=== PATIENT | male | born 1990 | race Caucasian/White ===

== ENCOUNTER 2019-03-09 20:01 | Emergency (ER) | payer MEDICAID, SELFPAY ==
[2019-03-09 20:06] VITALS: BP 128/75; PULSE 75; RESP 14; TEMP 36.6; O2SAT 99
--- NOTE | 2019-03-09 20:24 | NUR.NOTE ---
Pt changed to paper clothing. 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 Placed in room 9, room secured. GUSTAVO Moran in to figueroa pt.
--- NOTE | 2019-03-09 20:33 | NUR.NOTE ---
To room 9 with c/o SI. Pt reports that he has been snorting heroin daily since July, after being clean for several years. states he has been feeling suicidal since he started using again. States he wants to overdose on heroin. Had attempted to OD in December, was not seen in hospital then. Reports that the sate has taken away his children and he does not see his anymore, feeling very depressed. States he had inpt psych admission >10 years ago. Pt tearful during interview.
[2019-03-09 21:02] LABS: Abs Immature Grans 0.02 k/cumm (0.0-0.09); Absolute Basophil Count 0.02 k/cumm (0.0-0.2); Absolute Monocyte Count 0.41 k/cumm (0.11-0.7); Absolute Neutrophil Count 5.27 k/cumm (1.2-6.7); Basophils % 0.2; Eosinophils % 1.1; HCT 45.8 % (40.0-50.0); HGB 15.6 g/dL (13.5-17.5); Immature Grans % 0.2; Lymphocytes % 33.3; Mean Corp. HGB Concentration 34.1 g/dL (32.0-36.0); Mean Corpuscular Volume 91.1 fL (80-95); Mean Platelet Volume 9.3 fL (8.0-11.0); Monocytes % 4.7; Neutrophils % 60.5; Platelet Count 279 x1000/uL (130-400); RBC 5.03 m/cumm (4.50-6.00); RBC Distribution Width 12.6 % (11.8-14.1); White Blood Cell Count 8.72 k/cumm (4.4-10.8)
--- NOTE | 2019-03-09 21:03 | ED.GENADUL_ITS ---
Discharge Plan Disposition Patient Disposition: HOME Condition: Stable Discharge Details Chief Complaint: PsychEval Clinical Impression: Substance abuse Primary Care Provider: Marleny,Local ED Provider: Wagner Malagon Home Meds and New Rx's Prescriptions: No Action No Known Home Meds RF: 0 Discharge Instructions Instructions: Narcotic Abuse (ED) Additional Instructions: Return at any time for reevaluation or should you have recurrent mood disruption. Follow-up with your plans to establish outpatient care. Discharge Data Discharge Date/Time-TO BE ENTERED AT DEPARTURE: 03/10/19 10:10 Medical Decision Making <GUSTAVO Marion - Last Filed: 03/10/19 23:26> Patient referred to mental health for possible dual diagnosis placement. CPSO in place Spoke with ARMANDO who evaluated the patient the emergency room and will try to place an dual diagnosis bed. They do believe his bed is available tomorrow morning in [place]. <Maksim Dennis MD - Last Filed: 03/10/19 20:04> Patient here voluntarily for admission for depression/opioid dependence. No issues overnight. CPSO continues observation. Urine drug screen positive for opiates and marijuana. Other labs unremarkable. Hopefully to be placed later today. Lab Data Lab results reviewed: Yes I reviewed the patient's lab results. <Wagner Malagon MD - Last Filed: 03/10/19 09:42> Received signout from Dr. Dennis. Please see previous notes regarding details of patient's presentation and initial plan of care. He was observed overnight, rested comfortably, was evaluated again in the morning by mental health screener. Patient has good insight now into the stress that induced his relapse last night. No longer has thoughts of harming himself or others. He voices plans to obtain outpatient mental health and substance abuse treatment. He no longer wishes to pursue inpatient treatment. He was seen in the ER as well by a swim coach. Patient no longer a danger to himself or others. He is improving. He has good insight and a plan for outpatient care. He stable and appropriate discharged home. HPI <GUSTAVO Marion - Last Filed: 03/10/19 23:26> General Date/Time Provider Initiated Documentation: 03/09/19 20:13 . HPI Narrative: Patient presents for suicidal ideation. Patient has intent to kill himself via overdosing on heroin. Patient reports he had used heroin for approximately 8 years then had a long multi-years of sobriety. Patient recently relapsed in May. Patient reports significant stress regarding his child being recently taken away from him and the child's mother due to drug use. Patient is very tearful. Patient has no specific medical concerns or complaints at this time.. Denies IV drug use recently. Uses heroin intranasally Related Data Home Medications Medication Instructions Recorded Confirmed Unknown [No Known Home Meds] 12/03/13 12/03/13 Allergies Allergy/AdvReac Type Severity Reaction Status Date / Time No Known Allergies Allergy Unverified 12/03/13 20:37 General Stated Complaint: PsychEval TAMIE: 2 Review of Systems <GUSTAVO Marion - Last Filed: 03/10/19 23:26> Review of Systems ROS Unobtainable: All systems reviewed & are unremarkable except as noted in HPI and below Constitutional Constitutional: Denies chills, Denies fatigue and Denies fever(s) Psychiatric Psychiatric: Reports depression, Denies homicidal ideation and Reports suicidal ideation Endocrine Endocrine: Denies fatigue PFSH <GUSTAVO Marion - Last Filed: 03/10/19 23:26> Social History Smoking/Tobacco Use Status: Current every day Alcohol Intake: current Alcohol Intake frequency: a few times a month Drug use: Daily Substance use type: heroin Do you feel safe at home: Yes Do you feel safe in your relationship?: Yes Exam <GUSTAVO Marion - Last Filed: 03/10/19 23:26> Narrative Exam Narrative: CONST: Healthy appearing patient, in no acute distress. Well hydrated. Alert and alert. Chronic scarring noted to face and arms HENMT: Head nomocephalic, normal to inspection. Atraumatic. Hearing grossly normal. EYES: General normal appearance. Alignment normal. Eyelids normal. Conjunctiva normal. NECK: Normal visual inspection. FROM. Trachea midline. No Midline tenderness. CHEST: Normal insepection of the chest. RESP: Normal respiratory effort. Speaking full sentences. No cough. No audible wheezing. No retractions. CARDIO: No JVD. No murmurs or rubs MUSCULOSKELETAL: Normal Gait. FROM of all extremities. SKIN: Normal. Dry. No rashes. NEURO: Alert and awake. Speech clear. PSYCH: Normal affect. Cooperative. Course <GUSTAVO Marion - Last Filed: 03/10/19 23:26> Vital Signs Vital signs: Vital Signs Temperature 36.6 C 03/09/19 20:06 Pulse 75 03/09/19 20:06 Respiratory Rate 14 03/09/19 20:06 Blood Pressure 128/75 03/09/19 20:06 Pulse Oximetry 99 03/09/19 20:06 Temperature 36.6 C 03/09/19 20:06 Temperature Source Skin 03/09/19 20:06 Pulse 75 03/09/19 20:06 Respiratory Rate 14 03/09/19 20:06 Respiratory Effort 03/09/19 20:09 Blood Pressure 128/75 03/09/19 20:06 Blood Pressure Position Sitting 03/09/19 20:06 Pulse Oximetry 99 03/09/19 20:06 Pain Level 0 03/09/19 20:06 Lab/Test Results Lab/Test Results: Laboratory Tests Range/Units 03/09/19 20:53 WBC (4.4-10.8) k/cumm 8.72 RBC (4.50-6.00) m/cumm 5.03 Hgb (13.5-17.5) g/dL 15.6 Hct (40.0-50.0) % 45.8 MCV (80-95) fL 91.1 MCH (27.0-33.0) pg 31.0 MCHC (32.0-36.0) g/dL 34.1 RDW (11.8-14.1) % 12.6 Plt Count (130-400) x1000/uL 279 MPV (8.0-11.0) fL 9.3 Immature Gran % 0.2 Neutrophils % 60.5 Lymphocytes % 33.3 Monocytes % 4.7 Eosinophils % 1.1 Basophils % 0.2 Absolute Neutrophils (1.2-6.7) k/cumm 5.27 Absolute Lymphocytes (1.2-3.4) k/cumm 2.90 Absolute Monocytes (0.11-0.7) k/cumm 0.41 Absolute Eosinophils (0.0-0.7) k/cumm 0.10 Absolute Basophils (0.0-0.2) k/cumm 0.02 Sign Out <GUSTAVO Marion - Last Filed: 03/10/19 23:26> Sign Out Data: Sign Out Comment: Patient signed out pending psychiatric placement for dual diagnosis depression/opioid dependence. Last updated by Maksim Dennis MD at 03/10/19 07:40
[2019-03-09 21:16] LABS: ALT 17 U/L (16-63); AST 10 U/L (15-37); Albumin 4.1 g/dL (3.4-5.0); Alkaline Phosphatase 68 U/L (46-116); Anion Gap 8.9 mmol/L (3-11); BUN 16 mg/dL (7-18); Bilirubin, Total 0.4 mg/dL (0.2-1.0); CO2 29.1 mmol/L (21.0-32.0); CREATININE 0.91 mg/dL (0.70-1.30); Calcium 8.5 mg/dL (8.5-10.1); Chloride 105 mmol/L (98-107); Glucose 77 mg/dL (70-100); Potassium 3.9 mmol/L (3.5-5.1); Sodium 143 mmol/L (136-145); Total Protein 7.3 g/dL (6.4-8.2)
--- NOTE | 2019-03-09 21:29 | NUR.NOTE ---
Pt asked for his Heather to be called, no answer.
--- NOTE | 2019-03-09 21:44 | NUR.NOTE ---
Pt states he is unable to provide urine spec at this time. urinal at bedside. Pt father has left for the night. pt requesting a nicotine patch, GUSTAVO Moran aware.
--- NOTE | 2019-03-09 22:49 | PDOC.MHCN_ITS ---
Date of service: 03/09/19 Time of Service: 21:20 Mental Health Crisis Note Presenting Issue How did you arrive at the ED and why did you come: Patient was dropped off at the ED by his father due to thoughts of suicide. Patient stated that he feels like he has lost everything Precipitating Factors Patient stated that he has been thinking about hurting himself, overdose on heroin. Patient stated to ED staff that once he gets paid he will use it all. Patient stated that he recently lost his girlfriend and child to [employer]. This worker was notified that patient is not the biological parent to the child so he does not have any legal rights even though he has raised the child their whole life. Patient is recently homeless and has stayed with his father in [facility]. Patient is interested in seeking counseling, intake paperwork has been completed with [facility]. Disposition BEHAVIOR: calm and cooperative EYE CONTACT: eyes closed/very tired. MOOD: depressed AFFECT: flat APPETITE: okay SLEEP(trouble falling/staying asleep: not sleeping well Plan Patient will remain at [facility] inpatient until referrals for hospitalization have been reviewed and he is accepted. Signature Clinician's Name/Title: Roosevelt Bertrand emergency clinician
--- NOTE | 2019-03-09 23:15 | NUR.NOTE ---
Seen by ARMANDO, plan for bed search.
--- NOTE | 2019-03-09 23:35 | NUR.NOTE ---
Pt sleeping. per GUSTAVO Moran, hold medications until pt wakes up.
--- NOTE | 2019-03-10 00:21 | NUR.NOTE ---
Pt sleeping, even unlabored resp, RR 14. 1:1 at door.
[2019-03-10] MEDS: Nicotine 21 MG/24 HR PATCH (04:51)
[2019-03-10] MEDS: Acetaminophen 500 MG TAB (04:52)
[2019-03-10] MEDS: Ibuprofen 200 MG TAB (04:52)
[2019-03-10] MEDS: Promethazine 25 MG TAB (04:53)
--- NOTE | 2019-03-10 04:59 | NUR.NOTE ---
Urine spec obtained. Pt reports 3/10 pain to anshul legsthat woke him from sleep. Med a/o. Offered drinks, snacks, pt declined. State he is unsure if he wants to go int for detox. Agreeable to waiting until later in am to discuss with providers and mental health. remains on 1:1, calm and cooperative.
[2019-03-10 05:00] VITALS: BP 119/82; PULSE 74; RESP 16; TEMP 37.2; O2SAT 97
[2019-03-10 05:06] LABS: *AMPHETAMINES SCREEN URINE Negative (Negative); *BARBITURATES SCREEN URINE Negative (Negative); *BENZODIAZEPINES SCREEN URINE Negative (Negative); Cannabinoids THC POSITIVE (Negative); Cocaine Screen,Urine Negative (Negative); METHADONE URINE SCREEN Negative (Negative); OPIATES URINE SCREEN POSITIVE (Negative)
[2019-03-10 05:09] LABS: Tricyclic Antidepressants Negative (Negative)
--- NOTE | 2019-03-10 08:31 | PDOC.CMSAFED ---
Care Management Safety Plan Per MD: Patient presents for suicidal ideation. Patient has intent to kill himself via overdosing on heroin. Patient reports he had used heroin for approximately 8 years then had a long multi-years of sobriety. Patient recently relapsed in May. Patient reports significant stress regarding his child being recently taken away from him and the child's mother due to drug use. Patient is very tearful. Patient has no specific medical concerns or complaints at this time.. Denies IV drug use recently. Uses heroin intranasally. Safety plan has been established with patient, and care team, to adhere to patient goals, identify restrictions based on behavioral status, address nutrition, and determine allowed personal belongings, tools for hygiene and personal care. Determine level of activity including ambulation, level of supervision, visitors, and determine privileges based on behaviors and level of engagement by pt. SAFETY PLAN: 1. Will remain on suicide precautions. In Paper Clothes 2. Will remain in room under direct supervision of one-on-one staff at all times provided by CPSO; LEONARDO, [employer] SUPERVISOR passenger car inspector. 3. May have paper cups, plates, finger foods as well as a metal spoon with which to eat meals. [facility] staff will be responsible for accounting of utensils after meals. 4. Follow [facility] Management of the Admitted Behavioral Health Patient policy. 5. Comfort bath system only. 6. No personal belongings 7. Visitors-No visitors at this time 8. Activities: soft CART items, television if available. 9. Bathroom privileges per RN. 10. Phone: permitted per RN. 11. Due to VOLUNTARY status, if patient wishes to leave [facility], the [facility] pattern layout worker must be contacted to re-evaluate patient prior to patient exiting the building. Patient is currently voluntarily at [facility] and seeking inpatient admission when a bed becomes available. [facility] Frontline Solidworks Drafter will continue seeking placement. Please contact the Juvenile Justice Officer Forensics Analyst ([phone]) and [facility] Solidworks Drafter ([phone]) for any needed changes in the Safety Plan. Safety plan has been provided to interdepartmental care team.
[2019-03-10 09:16] VITALS: BP 146/91; RESP 18; O2SAT 100
--- NOTE | 2019-03-18 16:38 | NUR.NOTE ---
Nursing Note: Discharge instructions and a list of treatment centers was mailed to patient. It was returned today by mail, due to no such address. Cecelia Alfonso.
== END 2019-03-10 10:10 | disposition home or self-care (01) ==
PROVIDERS: Physician Assistant; Emergency Provider Emergency Medicine
DX: F32.9 Major depressive disorder, single episode, unspecified (principal); F19.10 Other psychoactive substance abuse, uncomplicated; R45.851 Suicidal ideations; Z59.0 Homelessness
CPT/HCPCS: 80053; 80307; 99285; 85025; 99284